=== PATIENT | male | born 1970 | race Caucasian/White ===

== ENCOUNTER → 2020-06-30 | Outpatient (CLI) | payer BC ==
--- NOTE | 2020-06-30 12:54 | XR ---
EXAMINATION TYPE: XR ankle complete RT DATE OF EXAM: 06/30/2020 COMPARISON: NONE HISTORY: 50-year-old male with right ankle pain TECHNIQUE: 3 views FINDINGS: Prominent anterior degenerative spurring at the tibiotalar joint. Lesser degree of posterio r degenerative spurring from the tibia. Ankle mortise is congruent with preservation of the distal ti biofibular overlap. Talar dome is intact. No acute fracture, subluxation, dislocation. Os trigonum no tatyana. Subtalar joint align. Small delineation to the Achilles tendon. IMPRESSION: Underlying tibiotalar joint osteoarthrosis characterized by marginal spurring seen on the lateral vie w. No acute osseous abnormality seen.
== END | disposition home or self-care (01) ==
LOC: RADXRYALE 10:12
PROVIDERS: ATTEND Physician Assistant Medical
DX: M19.071 Primary osteoarthritis, right ankle and foot (principal)

== ENCOUNTER → 2023-07-07 | Outpatient (CLI) | payer BC ==
--- NOTE | 2023-07-12 09:02 | XR ---
EXAMINATION TYPE: XR cervical spine comp DATE OF EXAM: 07/07/2023 1:59 PM CLINICAL INDICATION:Male, 53 years old with history of M5030,M542 CDD,CERVICALGIA; [facility] COMPARISON: TECHNIQUE: The cervical spine was imaged in frontal, lateral, odontoid and bilateral oblique. FINDINGS: The osseous structures show normal AP alignment without evidence of an acute fracture or listhesis. S traightening mild reversal of the normal cervical lordosis, can be seen with degenerative changes, pa in, positioning, muscular spasm. Mild multilevel degenerative disc disease. Mild right neural foramin al stenosis C6-C7 and left neural foraminal stenosis C5-6 and C6-7. Pedicles are intact. Soft tissue s are within normal limits. The odontoid appears intact. If clinical concern persists, CT or MRI may be obtained as indicated for further evaluation. IMPRESSION: 1. No radiographic evidence of fracture or traumatic malalignment. 2. Mild degenerative disc disease changes of the cervical spine.
== END | disposition home or self-care (01) ==
LOC: RADXRYALE 13:46
PROVIDERS: ATTEND Physician Assistant Medical
DX: M50.30 Other cervical disc degeneration, unspecified cervical region (principal)
CPT/HCPCS: 72050

== ENCOUNTER → 2024-09-15 | Outpatient (CLI) | payer BC ==
--- NOTE | 2024-09-15 22:52 | US ---
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 TECHNIQUE: Grayscale and color Doppler imaging of the thyroid gland. FINDINGS: GLAND SIZE: Right Lobe: 5.2 x 1.6 x 2.3 cm Overall Parenchyma: homogeneous Left Lobe: 5.9 x 2.7 x 2.8 cm Overall Parenchyma: homogeneous Isthmus Thickness: cm NODULES RIGHT: # of nodules measured on right: 0 LEFT: # of nodules measured on left: 1 1. 2.9 X 2.9 x 2.7 cm, lower lateral, mixed cystic and solid, hyperechoic nodule, which is wider th an tall, with smooth margins, without echogenic foci.TR 2 lesion. Prior size: no previous. ISTHMUS: # of nodules measured in the isthmus: 0 Bilateral neck scanned, no evidence of lymphadenopathy. Homogeneous normal-sized thyroid. Dominant left-sided nodule. IMPRESSION: As above. 2017 ACR TI-RADS LEVEL: TI-RADS 2 - Not Suspicious: No FNA *Highest TI-RADS level nodule reported [email or web address] [facility], , 09/15/2024 10:50 PM
== END | disposition home or self-care (01) ==
LOC: RADUSWWP 16:03
PROVIDERS: ATTEND Family Medicine
DX: D44.0 Neoplasm of uncertain behavior of thyroid gland (principal); E04.1 Nontoxic single thyroid nodule; R93.89 Abnormal findings on diagnostic imaging of other specified body structures
CPT/HCPCS: 76536

== ENCOUNTER → 2024-09-29 | Outpatient (CLI) | payer BC ==
--- NOTE | 2024-09-29 10:35 | XR ---
EXAMINATION TYPE: XR chest 2V DATE OF EXAM: 09/29/2024 CLINICAL INDICATION: Male, 54 years old with history of [id number] PRE OP, TECHNIQUE: Frontal and lateral views of the chest are obtained. COMPARISON: Prior chest x-ray February 10, 2012 FINDINGS: There is no focal air space opacity, pleural effusion, or pneumothorax seen. The cardiac silhouette size remains within normal limits. The osseous structures are intact. IMPRESSION: No acute cardiopulmonary process. [facility], , 09/29/2024 10:32 AM
== END | disposition home or self-care (01) ==
LOC: RADXRYALE 09:59
PROVIDERS: ATTEND Physician Assistant Medical
DX: Z01.811 Encounter for preprocedural respiratory examination (principal)
CPT/HCPCS: 71046

== ENCOUNTER 2024-10-05 08:27 | Day surgery (SDC) | payer BC ==
[2024-10-05 09:35] VITALS: RESP 16; TEMP 98.1
[2024-10-05 10:27] VITALS: BP 130/83; PULSE 80
--- NOTE | 2024-10-05 10:33 | US ---
EXAMINATION TYPE: US FNA thyroid first lesion DATE OF EXAM: 10/05/2024 10:13 AM CLINICAL INDICATION:Male, 54 years old with history of D44.0 NEOPLASM OF UNCERTAIN BEHAVIOR OF THYROI D GL; , thyroid nodule. COMPARISON: Prior thyroid ultrasound September 15, 2024 ATTENDING: Dr. Banks PROCEDURE: Informed consent was obtained. The risks and benefits of the procedure were discussed with the patien t including possibility of nondiagnostic results. Preprocedure ultrasound redemonstrates a 3.2 cm kasey id and cystic lower pole left thyroid nodule, TR2 lesion. Timeout procedure was performed. The patient was prepped, draped in the usual sterile fashion, and locally anesthetized with 1% lidoca ine. Five fine needle aspiration were then performed with a 25 gauge needle. Samples were sent to [facility] pathology department for further analysis. Patient tolerated the procedure without incident and wa s sent home in stable condition. IMPRESSION: Successful ultrasound guided fine needle aspiration. Low index of suspicion noted at time of procedure. [facility], , 10/05/2024 10:31 AM
== END 2024-10-05 10:20 | disposition home or self-care (01) ==
LOC: RADPROMAIN 08:27
PROVIDERS: ATTEND Family Medicine
DX: E04.1 Nontoxic single thyroid nodule (principal)
CPT/HCPCS: 10005; 88173; 88305

== ENCOUNTER 2024-10-13 07:30 | Inpatient (IN) | payer BC ==
[2024-10-15 14:17] VITALS: BMI 30.2
[2024-10-20] MEDS ORDERED: ceFAZolin 1,000 MG in SODIUM CHLORIDE 0.9% IRRIGATIO 1,000 ML IRRIGATION PRN (05:00)
[2024-10-20] MEDS ORDERED: MIDAZOLAM 2 MG/2 ML VIAL IV PRN (07:00)
[2024-10-20] MEDS: IV FLUID CONTINUATION 1,000 ML IV ONE ×3 (10:23→10:43)
[2024-10-20 10:39] LABS: Glucose,Whole Blood 156 mg/dL (70-110)
[2024-10-20] MEDS: LACTATED RINGERS 1,000 ML IV SCH (10:40)
[2024-10-20] MEDS: ONDANSETRON 4 MG/2 ML VIAL IVP ONE (10:41)
[2024-10-20] MEDS ORDERED: ROCURONIUM 10 MG/ML (5 ML VIAL) IV ONE (11:30)
[2024-10-20] MEDS ORDERED: fentaNYL (PF) 50 MCG/ML 2 ML AMP ONE (11:30)
[2024-10-20] MEDS ORDERED: PROPOFOL 10 MG/ML 20 ML VIAL IV ONE (11:30)
[2024-10-20] MEDS ORDERED: HYDROmorphone (PF) 1 MG/ML ONE (11:30)
[2024-10-20] MEDS ORDERED: DEXAMETHASONE SOD PHOSPHATE 10 MG/ML 1 ML VIAL ONE (11:30)
[2024-10-20] MEDS ORDERED: KETAMINE HCL IN 0.9 % NACL 50 MG/5 ML SYRINGE ONE (11:30)
[2024-10-20] MEDS ORDERED: GLYCOPYRROLATE 0.2 MG/ML 2 ML VIAL ONE (11:30)
[2024-10-20] MEDS ORDERED: SUCCINYLCHOLINE CHLORIDE 200 MG/10 ML VIAL IV ONE (11:30)
[2024-10-20] MEDS ORDERED: MIDAZOLAM 2 MG/2 ML VIAL ONE (11:30)
[2024-10-20] MEDS ORDERED: NEOSTIGMINE 1 MG/ML 10 ML VIAL ONE (11:30)
[2024-10-20] MEDS ORDERED: LIDOCAINE 1% INJ 10MG/ML (20 ML MDV) ONE (11:30)
[2024-10-20] MEDS: LIDOCAINE 1%-EPI 1:100,000 20 ML VIAL SQ ONE ×2 (12:06→12:07)
[2024-10-20] MEDS: THROMBIN (BOVINE) 5,000 UNIT VIAL TOPICAL ONE (12:13)
[2024-10-20] MEDS ORDERED: BENZOCAINE/MENTHOL LOZENG 1 EACH LOZENGE MUCOUS MEM PRN (14:10)
[2024-10-20] MEDS ORDERED: ONDANSETRON 4 MG/2 ML VIAL IVP PRN (14:11)
[2024-10-20] MEDS ORDERED: ALPRAZolam 0.25 MG TAB PO PRN (14:12)
--- NOTE | 2024-10-20 14:14 | XR ---
EXAMINATION TYPE: XR cervical spine limited DATE OF EXAM: 10/20/2024 12:37 PM COMPARISON: 07/07/2023 CLINICAL INDICATION: Male, 54 years old with history of C4-5,C5-6,C6-7 Fusion; PHH, pain TECHNIQUE: Single intraoperative crosstable lateral view FINDINGS AND IMPRESSION: Intraoperative view with patient intubated. There is a surgical needle within the anterior C5-C6 disc interspace. [facility], , 10/20/2024 2:12 PM
--- NOTE | 2024-10-20 14:20 | P.OP ---
Date of Procedure: 10/20/24 Preoperative Diagnosis: Cervical myelopathy, severe cervical stenosis C4-5 C5-6 C6-7, herniated nucleus pulposus C4-5 C5-6 C6-7, upper extreme radiculopathy, upper extremity weakness, degenerative disc disease Postoperative Diagnosis: Same Anesthesia: GETA Pathology: none sent Condition: stable Disposition: PACU Description of Procedure: BRIEF OPERATIVE NOTE Preoperative Diagnosis:Cervical myelopathy, severe cervical stenosis C4-5 C5-6 C6-7, herniated nucleus pulposus C4-5 C5-6 C6-7, upper extreme radiculopathy, upper extremity weakness, degenerative disc disease Postoperative Diagnosis:Cervical myelopathy, severe cervical stenosis C4-5 C5-6 C6-7, herniated nucleus pulposus C4-5 C5-6 C6-7, upper extreme radiculopathy, upper extremity weakness, degenerative disc disease Procedure: Anterior cervical decompression with discectomy and fusion C4-5 C5-6 C6-7 Placement of interbody graft C4-5 C5-6 C6-7 Application of anterior cervical plate C4-5-6 and 7 Surgeon: Dr. Holcomb Adjuster Electrical Contacts: Arnaud STAPLES who is present throughout the entire the case persistence during positioning, dissection, exposure, visualization, and all crucial elements of the case as well as closure. Anesthesia: General anesthesia per Dr. Curtis Estimated blood loss: Approximately 100 cc Complications: None apparent Components implanted: K2M [place] anterior cervical plate system with Vikos interbody allograft bone graft, and 1 cc of DBX bone putty to supplement the bone graft Disposition: To recovery room in good stable condition. OPERATIVE INDICATIONS The patient has had long-standing issues in their neck and upper extremities. He was having significant worsening over the past several months and was having weakness in his upper extremities with evidence of early myelopathy. He was found to have severe cervical stenosis with disc degeneration and herniations at C4-5 C5-6 and C6-7. These correlated well with his neck and his upper extremity symptoms. The patient has been through conservative treatment. Despite this he was not having any prolonged benefit. We discussed various treatment options including surgery, and the patient wishes to proceed with surgery We discussed the risk, patient's alternatives and benefits of surgery including but not limited to, risk of bleeding risk of infection, risk of need for further surgery, risk of decreased, loss of motion, muscle function, malunion nonunion, hardware failure, nerve damage, paralysis, heart attack, and . OPERATIVE SUMMARY After discussing all the risks, patient alternatives and benefits at length, the patient elected to proceed with surgical intervention, signed informed consent, and presented for their procedure. The patient was seen and examined in the preoperative holding area and the surgical site was marked. The patient was given antibiotics and brought to the operating room. The patient was positioned on the operating room table in a supine position being careful to pad any bony prominences and pressure points. The patient was sedated and intubated by anesthesia in standard fashion. Once the airway and C- spine were stabilized the patient's arms were padded and tucked at her side, with her shoulders gently taped. The head was placed in a donut pad with the neck in good neutral alignment and position. We were careful to maintain the patient's cervical spine and good neutral alignment and position throughout. The patient was prepped and draped in a normal standard fashion. An appropriate timeout and keystone protocol performed. We were able to proceed with the surgery. The local wound area was infiltrated with local anesthetic. An incision was made transversely approximately 2-1/2 cm over the appropriate levels at C6. Dissection was taken down subcutaneously to the level of the platysma which was split in line with its fibers. Dissection was taken with a carotid approach, with the trachea and esophagus medial and the carotid sheath laterally. We dissected down to the anterior surface of the vertebral bodies. Intraoperative x-ray was taken which showed a marker at the appropriate level of C5-6. With the appropriate level positively confirmed, we were able to proceed with discectomy at the appropriate levels starting at C6-7 and then moving to C5-6 and then C4-5. All of the operative levels were exposed appropriately. The patient had all their twitches back, and there was no evidence of recurrent laryngeal issue. The wound was copiously irrigated and suctioned dry as had been done periodically throughout the case. At the appropriate level/levels, this starting at C6-7 and then moving to C C5-6 and then to C4-5 similarly I established an annulotomy with an 11 blade scalpel. A discectomy was performed with a combination of pituitary rongeurs, curettes, a high-speed bur, and Kerrison rongeurs. The posterior longitudinal ligament was taken down as were any posterior osteophytes. Particularly at C5-6 and C6-7 the posterior largely ligament was significantly thickened causing severe compression at the thecal sac. This was taken down meticulously for further decompression. This gave good central and bilateral foraminal decompression. There is no evidence of any dural tear or leak. The endplates were prepared with a high-speed bur. With the endplates in good parallel position, I was able to size for the appropriate size interbody graft. The wound was irrigated and suctioned dry the graft was prepared and malleted into position. It had good alignment and position with the anterior surface flush with the anterior surface of the vertebral bodies. This was done similarly the appropriate levels. With the grafts intact, I was able to measure and contour and appropriate sized plate. The plate was positioned at the midline over the appropriate levels at C4-5-6 and 7. Screw holes were established with a hand drill and drill guide. Screws were placed in good alignment and position with excellent bony purchase. They were seated under the locking device. The construct was checked and found to be stable. Intraoperative x-ray was taken which showed good alignment and position of the implants at the appropriate levels. There was no evidence of any dural tear or leak. Good hemostasis was maintained. The wound was copiously irrigated and suctioned dry as had been done periodically throughout the case. The platysma was closed with absorbable suture. The subcutaneous tissue was closed. The subcuticular tissue was closed with absorbable suture. The wound was cleaned and dried and dressed appropriately. A soft cervical collar was placed appropriately. The patient was woken up by anesthesia, extubated, transferred back gently to their hospital bed and brought to the recovery room in good stable condition. The patient will be admitted to the hospital for appropriate postoperative care, medical management and monitoring. We will continue to follow them closely about the postoperative course.
[2024-10-20] MEDS: HYDROmorphone 0.5 MG/0.5 ML SYRINGE IVP PRN (14:40)
--- NOTE | 2024-10-20 15:10 | XR ---
EXAMINATION TYPE: XR cervical spine 1V DATE OF EXAM: 10/20/2024 2:01 PM COMPARISON: Earlier today CLINICAL INDICATION: Male, 54 years old with history of Hardware Placement; PHH, pain TECHNIQUE: Single crosstable intraoperative lateral view FINDINGS AND IMPRESSION: Patient remains intubated. There has been interval placement C4-C7 ACDF. The more inferior aspect of the hardware is not as well assessed due to overlying patient's shoulders. Gross positioning appears satisfactory. [facility], , 10/20/2024 3:08 PM
[2024-10-20] MEDS: SODIUM CHLORIDE 0.9% 1,000 ML IV SCH (15:41)
[2024-10-20] MEDS: DEXAMETHASONE SOD PHOSPHATE 4 MG/ML 1 ML VIAL IV ONE (16:30)
[2024-10-20] MEDS: SCOPOLAMINE 1 MG/72 HR PATCH TRANSDERM ONE (16:30)
[2024-10-20] MEDS: HYDROmorphone 1 MG/ML 1 ML SYRINGE IVP PRN (18:08)
[2024-10-20] MEDS: metFORMIN 500 MG TAB PO SCH (20:51)
[2024-10-20] MEDS: HYDROcodone/APAP 5-325MG 1 EACH TAB PO PRN (20:51)
[2024-10-21 01:54] VITALS: RESP 18
[2024-10-21] MEDS: PANTOPRAZOLE 40 MG TABLET PO SCH (06:57)
[2024-10-21 08:05] VITALS: BP 143/88; PULSE 97; TEMP 97.8
[2024-10-21] MEDS: SERTRALINE 50 MG TAB PO SCH (08:23)
[2024-10-21] MEDS: amLODIPine 10 MG TAB PO SCH (08:23)
[2024-10-21] MEDS: MULTIVITAMINS, THERA 1 EACH TAB PO SCH (08:23)
[2024-10-21] MEDS: LOSARTAN 50 MG TAB PO SCH (08:23)
[2024-10-21] MEDS: CYCLOBENZAPRINE 10 MG TAB PO PRN (08:25)
--- NOTE | 2024-10-21 09:49 | P.DS ---
Providers Date of admission: 10/20/24 09:58 Expected date of discharge: 10/21/24 Attending physician: Serg Holcomb Primary care physician: Ar Tomlinson - Discharge Diagnosis(es) (1) Status post cervical spinal fusion Patient is postoperative day #1 and feels he is making good progress postoperatively. He is not having any neurologic worsening and feels that he is improved in his strength already. He has pain around the surgical site as expected but is mobile and tolerating his diet. I think he is doing well and he is hoping to go home today which I think is appropriate. We will plan appropriate follow-up with appropriate discharge instructions. Current Visit: Yes Status: Acute (2) Cervicalgia Current Visit: Yes Status: Acute (3) Radiculopathy affecting upper extremity Current Visit: Yes Status: Acute (4) Upper extremity weakness Current Visit: Yes Status: Acute (5) Cervical stenosis of spinal canal Current Visit: Yes Status: Acute (6) Cervical herniated disc Current Visit: Yes Status: Acute (7) Cervical myelopathy Current Visit: Yes Status: Acute Hospital Course: This is a pleasant 54-year-old male who presented with C4-5, C5-6, and C6-7 herniated nucleus pulposus with severe cervical stenosis, cervical myelopathy, upper extremity radiculopathy, upper extremity weakness, and cervical degenerat graciela disc disease who failed outpatient conservative therapy. He was admitted for a C4-5, C5-6, and C6-7 anterior cervical decompression and fusion. The patient tolerated the procedure well and did well postoperatively. His cervical pain is adequately controlled. He is not currently experiencing any significant upper extremity weakness or radiculopathy symptoms. He is happy with his progress postoperatively. He feels he is ready for discharge today. Condition on day of discharge stable. Patient will be discharged home. Patient was cleared preoperatively for surgery by Dr. Tomlinson. Patient currently denies any nausea, vomiting, fever, or chills. Patient is eating and voiding freely without difficulty. Patient may shower Optifoam dressing intact. Patient may remove Optifoam dressing in 3 days and shower without a dressing at that time. Patient should avoid excessive neck flexion, extension, rotation, and lateral sidebending; no overhead lifting; no lifting greater than 10 pounds. MAPS has been reviewed today, 10/21/2024, with an Overall Overdose Risk Score of 380. An "Opiod Start Talking" Form has been signed and placed in the patient's chart. A prescription has been written for hydrocodone 5 mg / 325 mg, 1 tab, every 6 hours, as needed for acute pain, dispense #28. Prescription also written for cyclobenzaprine 10 mg, 1 tab, 3 times daily, as needed for muscle sp asm, dispense #60. Prescriptions are sent to the [facility] pharmacy located within [facility] per request of the patient. Physical Exam on day of discharge: Patient is awake, alert, and oriented 3 Vital signs stable Good chest excursion with deep inspiration and expiration Abdomen soft nontender Adequate range of motion of the cervical spine with adequate flexion, extension, and bilateral rotation Certified Nursing Assistant Instructor strength, thumb strength, interosseous strength, biceps strength, triceps strength, and shoulder strength positive sustained bilaterally Soft cervical collar intact Incision is clean, dry, and intact; no erythema, purulence, or signs of infection Optifoam dressing intact Procedures: C4-5, C5-6, and C6-7 anterior cervical decompression and fusion Patient Condition at Discharge: Stable Plan - Discharge Summary Discharge Rx Participant: Yes New Discharge Prescriptions: New Cyclobenzaprine [Flexeril] 10 mg PO TID PRN #60 tab PRN Reason: Muscle Spasm HYDROcodone/APAP 5-325MG [[place] 5] 1 each PO Q6HR PRN #28 tab PRN Reason: Pain No Action Sertraline [Zoloft] 50 mg PO DAILY Omeprazole [PriLOSEC] 20 mg PO AC-BRKFST metFORMIN HCL 1,000 mg PO BID ALPRAZolam [Xanax] 0.25 mg PO DAILY PRN PRN Reason: Anxiety amLODIPine BES/OLMESARTAN MED [amLODIPine BES/OLMESARTAN MED 5-20 mg] 2 tab PO DAILY HYDROcodone/APAP 5-325MG [Milton 5-325] 1 tab PO Q12HR PRN PRN Reason: Pain Multivit-Minerals/FA/Lycopene [One-A-Day Men's 50 Plus Tablet] 1 each PO DAILY Discharge Medication List ALPRAZolam [Xanax] 0.25 mg PO DAILY PRN 09/30/24 [History] HYDROcodone/APAP 5-325MG [Milton 5-325] 1 tab PO Q12HR PRN 09/30/24 [History] Omeprazole [PriLOSEC] 20 mg PO AC-BRKFST 09/30/24 [History] Sertraline [Zoloft] 50 mg PO DAILY 09/30/24 [History] amLODIPine BES/OLMESARTAN MED [amLODIPine BES/OLMESARTAN MED 5-20 mg] 2 tab PO DAILY 09/30/24 [History] metFORMIN HCL 1,000 mg PO BID 09/30/24 [History] Multivit-Minerals/FA/Lycopene [One-A-Day Men's 50 Plus Tablet] 1 each PO DAILY 10/15/24 [History] Cyclobenzaprine [Flexeril] 10 mg PO TID PRN #60 tab 10/21/24 [Rx] HYDROcodone/APAP 5-325MG [Milton 5] 1 each PO Q6HR PRN #28 tab 10/21/24 [Rx] Follow up Appointment(s)/Referral(s): Arnaud Bryson PAC [PHYSICIAN HOME HEALTH BILLING SPECIALIST] - 11/02/24 10:40 am (With Dr. Holcomb ) Ar Tomlinson DO [Primary Care Provider] - 10/25/24 1:20 pm Patient Instructions/Handouts: *Surgery [facility] - ([facility]) Cervical Surgery Discharge Instructions Activity/Diet/Wound Care/Special Instructions: 1. Patient may shower with Optifoam dressing intact. 2. Patient may remove Optifoam dressing in 3 days and shower without a dressing at that time. 3. Patient may wear soft cervical collar for comfort support as needed. 4. Patient should refrain from driving until at least after their first follow- up appointment in the office. 5. Patient should avoid excessive cervical flexion, extension, and side bending; avoid overhead lifting; no lifting greater than 10 pounds 6. Take medications as prescribed 7. Patient should avoid anti-inflammatory medications over the next 6 weeks postoperatively 8. Do not soak in tub Discharge Disposition: HOME SELF-CARE
== END 2024-10-21 11:23 | disposition home or self-care (01) | DRG 473 ==
LOC: 2ORMAIN 10-20 09:58 → 4SSUR 10-20 14:37
PROVIDERS: ADMIT Orthopaedic Surgery Orthopaedic Surgery of the Spine; ATTEND Orthopaedic Surgery Orthopaedic Surgery of the Spine
PROC: 0RB30ZZ Excision of Cervical Vertebral Disc, Open Approach (ICD-10-PCS; 2024-10-20)
PROC: 01N10ZZ Release Cervical Nerve, Open Approach (ICD-10-PCS; 2024-10-20)
PROC: 4A11X4G Monitoring of Peripheral Nervous Electrical Activity, Intraoperative, External Approach (ICD-10-PCS; 2024-10-20)
PROC: 0RG20A0 Fusion of 2 or more Cervical Vertebral Joints with Interbody Fusion Device, Anterior Approach, Anterior Column, Open Approach (ICD-10-PCS; principal; 2024-10-20 11:45)
DX: M50.023 Cervical disc disorder at C6-C7 level with myelopathy (principal); M50.123 Cervical disc disorder at C6-C7 level with radiculopathy; E11.9 Type 2 diabetes mellitus without complications; I10 Essential (primary) hypertension; M48.02 Spinal stenosis, cervical region; M25.78 Osteophyte, vertebrae; Z79.4 Long term (current) use of insulin
CPT/HCPCS: 72020; 72040